=== PATIENT | male | born 1940 | race Caucasian/White ===

== ENCOUNTER 2020-04-06 18:11 | Emergency (ER) | payer OTHER ==
[~2020-04-06 18:11] MED LIST: AMARYL2 MG PO; AMLODIPINE BESY10 MG PO; ANTIVERT25 MG PO; ASPIRIN EC81 MG PO; ASPIRIN325 MG PO; BENTYL10 MG PO; CERTAGEN1 EACH PO; CLARITIN10 MG PO; COLACE100 MG PO; COREG 3.125M3.125 MG PO; COREG 6.25MG6.25 MG PO; COUMADIN 2.5MG2.5 MG PO; COUMADIN 5MG TAB5 MG PO; COUMADIN2 MG PO; COUMADIN2.5 MG PO; COUMADIN3 MG PO; COUMADIN5 MG PO; CREON DR 24,001 EACH PO; CRESTOR20 M1 PO; DULCOLAX5 M1 PO; FENOFIBRATE134 MG PO; FIBERCON1 EACH PO; FISH OIL 1,2001 EAC1 PO; FISH OIL PO; FLONASE ALLER15.8 ML; FLONASE ALLER15.8 ML INH; FLUTICASONE; FORTAMET500 MG PO; GLUCOPHAGE500 MG PO; LASIX20 MG PO; LAXATIVE SUPPOS10 MG PO; LIPITOR10 MG PO; LIPITOR20 MG PO; MAG-OXIDE 400M400 MG PO; MAGNESIUM400 MG PO; METFORMIN HCL500 MG PO; NORVASC5 MG PO; OMEGA 3 FISH O1 EACH PO; ONDANSETRON ODT4 MG PO; PHENERGAN12.5 M1 PO; PRILOSEC20 MG PO; PRINIVIL20 MG PO; UROCIT-K10 MEQ PO; VALACYCLOVIR1000 MG PO; VANCOCIN HCL250 MG PO; VITAMIN B-122500 MCG PO; VITAMIN D32000 UNIT PO
[2020-04-06 18:33] LABS: BASOPHIL 0.4 % (0-2); EOSINOPHIL 3.7 % (0-7); HCT 39.5 % (42.0-52.0); HGB 12.4 g/dl (13.2-18.0); LYMPHOCYTE 28.4 % (15-48); MCH 28.4 pg (25.0-31.0); MCHC 31.4 g/dL (32.0-36.0); MCV 90.6 fL (78.0-100.0); MONOCYTE 9.5 % (0-12); NEUTROPHIL 57.6 % (41-80); NRBC 0; PLT 254 K/uL (150-400); RBC 4.36 M/uL (4.70-6.00); RDW 14.2 % (11.5-14.0); WBC 7.4 K/uL (4.0-10.5)
[2020-04-06 18:46] LABS: ALBUMIN 3.5 g/dL (3.4-5.0); BILIRUBIN - TOTAL 0.4 mg/dL (0.2-1.0); BUN/CREAT RATIO (CALC) 29.8 RATIO; CREATININE 1.21 mg/dL (0.67-1.17); GLOBULIN (CALCULATION) 3.6 g/dL; INR 1.41 (0.9-1.2); PROTHROMBIN TIME 16.4 SECONDS (11.4-13.6); PTT 26.8 SECONDS (22.2-34.7); TOTAL PROTEIN 7.1 g/dL (6.4-8.2)
== END 2020-04-06 23:22 | disposition other institution (70) ==
LOC: FER 18:11
PROVIDERS: Emergency Medicine
DX: R07.9 Chest pain, unspecified (principal); R06.02 Shortness of breath; R11.0 Nausea; I10 Essential (primary) hypertension; E11.9 Type 2 diabetes mellitus without complications; K83.8 Other specified diseases of biliary tract; Z88.5 Allergy status to narcotic agent; Z79.84 Long term (current) use of oral hypoglycemic drugs; Z86.79 Personal history of other diseases of the circulatory system; Z79.899 Other long term (current) drug therapy; Z79.82 Long term (current) use of aspirin; Z79.01 Long term (current) use of anticoagulants
CPT/HCPCS: 36415; 71045; 71275; 80053; 84484; 85025; 85610; 85730; 93005; J1170; J1644; J2405; Q9967